=== PATIENT | female | born 1970 | race Caucasian/White ===

== ENCOUNTER → 2018-11-04 | Outpatient (CLI) | payer OTHER ==
--- NOTE | 2018-11-04 18:08 | KCIC ---
STUDY: MRI of the left knee without contrast INDICATION: Posterior left knee pain. COMPARISON: None. TECHNIQUE: Multiplanar MR imaging of the left knee performed without the use of intravenous or intra-articular contrast. FINDINGS: The study is degraded by susceptibility artifact associated with tibial surgical hardware and prior ACL repair. Menisci: Significantly diminutive caliber of the medial meniscal body which is extruded into the medial gutter. A superimposed acute tear defect is not identified. Macerated appearance of the lateral meniscus posterior horn as well as mid meniscal body which is extruded into the lateral gutter, image 15 series 7 and image 8 series 6. Cruciate ligaments: Status post ACL repair with the graft appearing intact but deviated medially due to a prominent osteophyte originating from the lateral wall of the intercondylar notch, reference images 12 and 13 series 8. Globular T2 signal elevation throughout the PCL with some visualized intact traversing fibers. Collateral ligaments: No findings to suggest acute injury of the medial or lateral collateral ligaments. These ligaments are bowed outward by joint line osteophytes and the extruded menisci and some edema along the lateral collateral ligamentous complex such as seen on image 16 series 4, is favored reactive. Tendons: The extensor tendon complex is grossly intact, as are the additional tendons at the knee. Cartilage: Patellofemoral: High-grade chondrosis centered at and extending along both sides of the patellar median ridge. Multifocal trochlear chondral loss as well that is difficult to evaluate due to artifact. Lateral compartment: Chondral loss most notable at the posterior weightbearing aspect of the lateral femoral condyle which is difficult to measure due to artifact. Chondral loss extends to involve the posterior nonweightbearing aspect. Medial compartment: Chondral thinning at the weightbearing aspect without well identified full-thickness defect. There appears to be some chondral loss at the posterior nonweightbearing aspect as well. Bones: Prominent joint line osteophytes. Patellofemoral compartment osteophyte formation. As above, prominent bony spur at the lateral aspect of the intercondylar notch. No acute fracture. Miscellaneous: Small knee joint effusion. Loose bodies seen within the posterior joint space, image 14 series 5. IMPRESSION: 1. Degraded evaluation due to susceptibility artifact associated with surgical hardware. 2. Sequela of prior ACL repair with the graft appearing intact. Note is made that the graft is bowed medially due to mass effect by a large osteophyte originating from the lateral wall of the intercondylar notch. Globular T2 signal elevation throughout the PCL could represent a large intracruciate ganglion or mucoid degeneration. 3. Diminutive caliber of the medial meniscal body with some extrusion into the medial gutter which could be related to prior partial meniscectomy or chronic degeneration. No acute medial meniscal tear is seen. Maceration of portions of the lateral meniscus such as at the mid meniscal body and at the posterior horn. 4. Tricompartmental osteoarthrosis with multifocal high-grade/full-thickness chondral loss, as detailed above. The greatest degree of chondral loss involves the patellofemoral and lateral femorotibial compartments. 5. Small knee joint effusion with loose bodies. Electronically signed by: BRITTNEY LARKIN MD (11/04/2018 6:05 PM) [facility]
== END | disposition home or self-care (01) ==
LOC: KCIC MRI 16:08
PROVIDERS: ATTEND Physical Medicine & Rehabilitation Pain Medicine
DX: M17.12 Unilateral primary osteoarthritis, left knee (principal); M25.762 Osteophyte, left knee; M23.42 Loose body in knee, left knee; M76.9 Unspecified enthesopathy, lower limb, excluding foot; F40.240 Claustrophobia; Z96.698 Presence of other orthopedic joint implants
CPT/HCPCS: 73721

== ENCOUNTER 2019-04-10 15:00 | Emergency (ER) | payer OTHER ==
[~2019-04-10] VITALS: Ht 161.3 cm; Wt 96.6 kg
--- NOTE | 2019-04-10 15:28 | PHYS DOC ---
Past Medical History NIHSS Stroke Scale NIH Stroke Scale: NIH Stroke Scale Response (Comments) Value Level of Consciousness: 0 Alert/Responsive 0 LOC Questions: 0 Answers both correctly 0 LOC Commands: 0 Performs both tasks 0 Best Gaze: 0 Normal 0 Visual: 0 No visual loss 0 Facial Palsy: 0 Normal, symmetrical 0 Motor - Left Arm 0 No drift 0 Motor - Right Arm 0 No drift 0 Motor - Left Leg 0 No drift 0 Motor: Right Leg 0 No drift 0 Limb Ataxia: 0 Absent 0 Sensory: 0 No loss 0 Best Language: 1 Mild to mod aphasia 1 Dysathria: 0 Normal 0 Extinction and Inattention: 0 Normal 0 Total 1 Adult General Chief Complaint Chief Complaint: SHORTNESS OF BREATH HPI HPI Patient is a 48 year old female who presents with on August patient had a left total knee done at [facility]. Surgery done by Dr. Neves. Patient states today she had gotten up and walked around into the bathroom and around into the house and began feeling shortness of air and lightheaded at 1400. She states that this time she had just gotten done eating some pizza and she sat down when she started feeling this way. She states that she is still feeling this way down the hospital. She stated that about 1430 she took 0.5 mg of Xanax to see if that would help. Patient last took 2 Percocet at 1035 this morning. She denies visual changes, chest pain, nausea, vomiting, headache, numbness or tingling, weakness, abdominal pain. She rates her knee pain a 5 out of 10 and states that's where 's staying. She states she is not on any kind of blood thinner. She states she has some tenderness to the left lateral lower leg and rosenberg area but states she does not think it is any worsening has been. Patient is ambulatory with a walker. (SYDNEY STEELE APRN) Review of Systems Review of Systems Respiratory: Denies cough. + shortness of breath [] Neurologic: Dizziness. Denies headache, focal weakness or sensory changes [] All other systems were reviewed and found to be within normal limits, except as documented in this note. (SYDNEY STEELE APRN) Current Medications Current Medications Current Medications Medications (Trade) Dose Ordered Sig/Westley Start Time Stop Time Status Last Admin Dose Admin Famotidine (Pepcid Vial) 20 mg 1X ONCE 04/10/19 17:45 04/10/19 17:47 DC 04/10/19 18:03 20 MG Fentanyl Citrate (Fentanyl 2ml Vial) 50 mcg 1X ONCE 04/10/19 17:45 04/10/19 17:46 DC 04/10/19 18:00 50 MCG Ibuprofen (Motrin) 600 mg 1X ONCE 04/10/19 19:00 04/10/19 19:01 DC 04/10/19 19:10 600 MG Info (CONTRAST GIVEN -- Rx MONITORING) 1 each PRN DAILY PRN 04/10/19 16:45 04/10/19 21:02 DC Iohexol (Omnipaque 350 Mg/ml) 100 ml 1X ONCE 04/10/19 16:30 04/10/19 16:31 DC 04/10/19 16:55 100 ML Morphine Sulfate (Morphine Sulfate) 2 mg 1X ONCE 04/10/19 19:15 04/10/19 19:16 DC 04/10/19 19:39 2 MG Sodium Chloride 1,000 ml @ 1,000 mls/hr 1X ONCE 04/10/19 16:30 04/10/19 17:29 DC 04/10/19 16:20 1,000 MLS/HR (HOLLIS ALVARADO MD) Allergies Allergies Allergies Coded Allergies Type Severity Reaction Last Updated Verified bupropion Allergy Unknown 04/10/19 Yes tegaserod Allergy Unknown 04/10/19 Yes (HOLLIS ALVARADO MD) Physical Exam Physical Exam Constitutional: Well developed, well nourished, no acute distress, non-toxic appearance. [] HENT: Normocephalic, atraumatic, bilateral external ears normal, oropharynx moist, no oral exudates, nose normal. [] Eyes: PERRLA, EOMI, conjunctiva normal, no discharge. [] Neck: Normal range of motion, no tenderness, supple, no stridor. [] Cardiovascular:Heart rate regular rhythm, no murmur [] Lungs & Thorax: Bilateral breath sounds clear to auscultation [] Abdomen: Bowel sounds normal, soft, no tenderness, no masses, no pulsatile masses. [] Skin: Warm, dry, no erythema, no rash. [] Back: No tenderness, no CVA tenderness. [] Extremities: No tenderness, no cyanosis, no clubbing, Left knee ROM intact but slightly less due to surgery, Left lower leg 2+ edema. [] Neurologic: Alert and oriented X 3, normal motor function, normal sensory function, no focal deficits noted. [] Psychologic: Affect normal, judgement normal, mood normal. [] (SYDNEY STEELE APRN) Current Patient Data Vital Signs Vital Signs Date Time Temp Pulse Resp B/P (MAP) Pulse Ox O2 Delivery O2 Flow Rate FiO2 04/10/19 20:38 86 20 127/83 (98) 97 Room Air 04/10/19 15:15 97.9 97.9 (HOLLIS ALVARADO MD) Lab Values Laboratory Tests Test 04/10/19 15:35 White Blood Count 7.6 x10^3/uL (4.0-11.0) Red Blood Count 4.13 x10^6/uL (3.50-5.40) Hemoglobin 12.3 g/dL (12.0-15.5) Hematocrit 36.2 % (36.0-47.0) Mean Corpuscular Volume 88 fL (79-100) Mean Corpuscular Hemoglobin 30 pg (25-35) Mean Corpuscular Hemoglobin Concent 34 g/dL (31-37) Red Cell Distribution Width 13.1 % (11.5-14.5) Platelet Count 204 x10^3/uL (140-400) Neutrophils (%) (Auto) 76 % (31-73) H Lymphocytes (%) (Auto) 15 % (24-48) L Monocytes (%) (Auto) 7 % (0-9) Eosinophils (%) (Auto) 2 % (0-3) Basophils (%) (Auto) 1 % (0-3) Neutrophils # (Auto) 5.8 x10^3/uL (1.8-7.7) Lymphocytes # (Auto) 1.1 x10^3/uL (1.0-4.8) Monocytes # (Auto) 0.5 x10^3/uL (0.0-1.1) Eosinophils # (Auto) 0.1 x10^3/uL (0.0-0.7) Basophils # (Auto) 0.1 x10^3/uL (0.0-0.2) D-Dimer (Ambar) 1.20 ug/mlFEU (0.00-0.50) H Sodium Level 138 mmol/L (136-145) Potassium Level 3.7 mmol/L (3.5-5.1) Chloride Level 100 mmol/L (98-107) Carbon Dioxide Level 28 mmol/L (21-32) Anion Gap 10 (6-14) Blood Urea Nitrogen 12 mg/dL (7-20) Creatinine 0.8 mg/dL (0.6-1.0) Estimated GFR (Cockcroft-Gault) 76.9 BUN/Creatinine Ratio 15 (6-20) Glucose Level 99 mg/dL (70-99) Calcium Level 9.1 mg/dL (8.5-10.1) Total Bilirubin 0.2 mg/dL (0.2-1.0) Aspartate Amino Transferase (AST) 47 U/L (15-37) H Alanine Aminotransferase (ALT) 48 U/L (14-59) Alkaline Phosphatase 63 U/L (46-116) Troponin I Quantitative < 0.017 ng/mL (0.000-0.055) JA-Tjw-C-Type Natriuretic Peptide 153 pg/mL (0-124) H Total Protein 6.8 g/dL (6.4-8.2) Albumin 3.3 g/dL (3.4-5.0) L Albumin/Globulin Ratio 0.9 (1.0-1.7) L Laboratory Tests 04/10/19 15:35 Laboratory Tests 04/10/19 15:35 (HOLLIS ALVARADO MD) Lab Values Laboratory Tests Test 04/10/19 15:35 White Blood Count 7.6 x10^3/uL (4.0-11.0) Red Blood Count 4.13 x10^6/uL (3.50-5.40) Hemoglobin 12.3 g/dL (12.0-15.5) Hematocrit 36.2 % (36.0-47.0) Mean Corpuscular Volume 88 fL (79-100) Mean Corpuscular Hemoglobin 30 pg (25-35) Mean Corpuscular Hemoglobin Concent 34 g/dL (31-37) Red Cell Distribution Width 13.1 % (11.5-14.5) Platelet Count 204 x10^3/uL (140-400) Neutrophils (%) (Auto) 76 % (31-73) H Lymphocytes (%) (Auto) 15 % (24-48) L Monocytes (%) (Auto) 7 % (0-9) Eosinophils (%) (Auto) 2 % (0-3) Basophils (%) (Auto) 1 % (0-3) Neutrophils # (Auto) 5.8 x10^3/uL (1.8-7.7) Lymphocytes # (Auto) 1.1 x10^3/uL (1.0-4.8) Monocytes # (Auto) 0.5 x10^3/uL (0.0-1.1) Eosinophils # (Auto) 0.1 x10^3/uL (0.0-0.7) Basophils # (Auto) 0.1 x10^3/uL (0.0-0.2) D-Dimer (Ambar) 1.20 ug/mlFEU (0.00-0.50) H Sodium Level 138 mmol/L (136-145) Potassium Level 3.7 mmol/L (3.5-5.1) Chloride Level 100 mmol/L (98-107) Carbon Dioxide Level 28 mmol/L (21-32) Anion Gap 10 (6-14) Blood Urea Nitrogen 12 mg/dL (7-20) Creatinine 0.8 mg/dL (0.6-1.0) Estimated GFR (Cockcroft-Gault) 76.9 BUN/Creatinine Ratio 15 (6-20) Glucose Level 99 mg/dL (70-99) Calcium Level 9.1 mg/dL (8.5-10.1) Total Bilirubin 0.2 mg/dL (0.2-1.0) Aspartate Amino Transferase (AST) 47 U/L (15-37) H Alanine Aminotransferase (ALT) 48 U/L (14-59) Alkaline Phosphatase 63 U/L (46-116) Troponin I Quantitative < 0.017 ng/mL (0.000-0.055) VE-Ymp-R-Type Natriuretic Peptide 153 pg/mL (0-124) H Total Protein 6.8 g/dL (6.4-8.2) Albumin 3.3 g/dL (3.4-5.0) L Albumin/Globulin Ratio 0.9 (1.0-1.7) L Laboratory Tests 04/10/19 15:35 Laboratory Tests 04/10/19 15:35 (SYDNEY STEELE APRN) EKG EKG NSR and no STEMI Interpretation Time: [address] Alvarado (SYDNEY STEELE APRN) Radiology/Procedures Radiology/Procedures [] (SYDNEY STEELE APRN) Impressions: [facility] [address] [place], [place] [id number] IMAGING REPORT Signed PATIENT: PHIL MOELLER ACCOUNT: [id number] : 1970 LOCATION: ER AGE: 48 SEX: F EXAM STATUS: REG ER ORD. PHYSICIAN: SYDNEY STEELE APRN REASON: elevated ddimer, post op left knee surgery 04/06, soa PROCEDURE: CT ANGIOGRAPHY CHEST Exam: CT of chest with contrast INDICATION: Elevated d-dimer, recent surgery TECHNIQUE: Sequential axial images through the chest obtained following the administration of 100 mL of Isovue 350 IV contrast. Sagittal and coronal reformatted images were reconstructed from the axial data and reviewed. 3-D reformatted images were reconstructed from the axial data and reviewed. Comparisons: None FINDINGS: Visualized portions of the thyroid are unremarkable. No enlarged mediastinal lymph nodes. Heart size is normal. No pericardial effusion. Thoracic aorta has a normal course and caliber. Pulmonary artery is not enlarged. Evaluation for pulmonary embolism is limited secondary to contrast bolus timing. No pulmonary embolus identified within the main, lobar or proximal segmental pulmonary arteries. Airways are patent. No consolidation or pneumothorax. No suspicious lung nodules are identified. Visualized upper abdomen. No suspicious osseous lesions or acute fractures. IMPRESSION: No pulmonary was identified within the main, lobar or proximal segmental pulmonary arteries. Limitations as described above. Exposure: One or more of the following in the visualized dose reduction techniques were utilized for this examination: 1. Automated exposure control 2. Adjustment of the MA and/or KV according to patient size 3. Use of iterative of reconstructive technique Electronically signed by: Vel Levi MD (04/10/2019 5:04 PM) [facility] [place] DICTATED and SIGNED BY: VEL LEVI MD DATE: 04/10/19 2147 [facility] [address] [facility] [place] [address] IMAGING REPORT Signed PATIENT: PHIL MOELLER ACCOUNT: [id number] : 1970 LOCATION: ER AGE: 48 SEX: F EXAM STATUS: PRE ER ORD. PHYSICIAN: SYDNEY STEELE APRN REASON: dizziness PROCEDURE: CT HEAD WO CONTRAST Exam: CT head INDICATION: Dizziness TECHNIQUE: Sequential axial images through the head were obtained without the administration of IV contrast. Comparisons: None FINDINGS: No focal parenchymal lesion or hemorrhage is identified. There is no midline shift or sulcal effacement. No acute vascular territory infarction is identified. Gipson-white distinction is preserved. The ventricular system is within normal limits without compression hydrocephalus. The basal cisterns are well maintained. The visualized portions of the paranasal sinuses and mastoid air cells are well-pneumatized. No acute fractures. IMPRESSION: No acute intracranial abnormality. Exposure: One or more of the following in the visualized dose reduction techniques were utilized for this examination: 1. Automated exposure control 2. Adjustment of the MA and/or KV according to patient size Use of iterative of reconstructive technique Electronically signed by: Vel Levi MD (04/10/2019 4:18 PM) [facility] DICTATED and SIGNED BY: VEL LEVI MD DATE: 04/10/19 1618 [facility] [address] [place] [address] IMAGING REPORT Signed PATIENT: PHIL MOELLER ACCOUNT: [id number] : 1970 LOCATION: ER AGE: 48 SEX: F EXAM STATUS: PRE ER ORD. PHYSICIAN: SYDNEY STEELE APRN REASON: post op total knee, tenderness PROCEDURE: VENOUS LOWER EXTREMITY LEFT VENOUS LOWER EXTREMITY LEFT History: Postop left total knee. Left lower extremity pain and tenderness. Comparison: None. Discussion: Multiple longitudinal and transverse high resolution real-time images of the venous system of left lower extremity were obtained with color and Doppler sampling. The common femoral, superficial femoral, popliteal and proximal calf veins are all patent and demonstrate normal flow and compressibility. Normal respiratory phasicity and augmentation is present. Impression: 1. No evidence of deep vein thrombosis within the left lower extremity. Electronically signed by: Devendra Steven DO (04/10/2019 4:18 PM) [facility] [place] DICTATED and SIGNED BY: DEVENDRA STEVEN DO DATE: 04/10/191617 [facility] [address] [place] [address] IMAGING REPORT Signed PATIENT: PHIL MOELLER ACCOUNT: [id number] : 1970 LOCATION: ER AGE: 48 SEX: F EXAM STATUS: PRE ER ORD. PHYSICIAN: SYDNEY STEELE APRN REASON: soa, post op total left knee 04/06 PROCEDURE: PORTABLE CHEST 1V PORTABLE CHEST 1V History: Shortness of breath. Comparison: March 29, 2019 Findings: No consolidation or pleural effusion. Normal heart size. No pneumothorax. Impression: 1. No acute cardiopulmonary process. Electronically signed by: Devendra Steven DO (04/10/2019 4:18 PM) [facility] [place] DICTATED and SIGNED BY: DEVENDRA STEVEN DO DATE: 04/10/191617 (SYDNEY STEELE APRN) Course & Med Decision Making Course & Med Decision Making No tenderness to the calf or lower leg with palpation. No tenderness behind the knee. Patient has her KEVIN hose on bilaterally. There is 2+ swelling to the left leg compared to the right leg. Pedal pulses strong and present. Cap refill less than 3 seconds. Skin pink warm and dry but skin around the surgical site and going up the thigh is red and hot, most likely cellulitis. Patient states this area is very tender. Lungs are clear to auscultation in all lobes. Patient states nothing makes her shortness of breath worse or better and nothing makes the dizziness worse or better. She states the room is not spinning she just feels lightheaded. PERRLA. No nystagmus. Follows all commands appropriately. NIH is 0. Upon arrival patient is tachycardic at 119 but is satting at 97% room air. Patient speaks in full clear sentences. Alert and oriented. Denies any chest pain or chest pain with breathing. Patient denies fevers or cough or any other flu symptoms. Patient is having orthostatic hypotension. Layin/70, 88; sittin/72, 86; standin/103, 106. Patient states her pain is now at a 6 on her knee and is asking for pain medication. I will give her fentanyl and normal saline 1000ml. D-dimer elevated at 1.20. CT Chest angio ordered. Chest x-ray, CT head, ultrasound of extremity, CT angio chest are all negative. Have spoken to Dr. Mccann Orthopedic doctor marketing communications coordinator at [facility]. He states to transfer the patient there to the ED. [facility] transfer line has been called and currently waiting on a phone call back. Patients temperature has elevated to 99.5. Patient is becoming very anxious. Patient is ordered ibuprofen. Patient is asking if we can hurry this up and patient's mother is asking if I can call the back to get things moving faster. I have spoken to Saira Burnett [employer] SCIENTIST at [facility] who is accepting the patient with a accepting physician of Dr Zuniga. She also states to hold off on the antibiotics as the orthopedic doctors will order those upon arrival. (SYDNEY STEELE APRN) Course & Med Decision Making I was not involving the care of this patient after 1800 on 04/10/2019 (HOLLIS ALVARADO MD) Dragon Disclaimer Dragon Disclaimer This electronic medical record was generated, in whole or in part, using a voice recognition dictation system. (SYDNEY STEELE APRN) Departure Departure Impression: Primary Impression: Cellulitis Additional Impressions: Shortness of breath Light headedness Disposition: 05 TRANSFER OTHER ([facility]) Condition: STABLE Referrals: NO PCP (PCP) Problem Qualifiers Primary Impression: Cellulitis Site of cellulitis: extremity Site of cellulitis of extremity: lower extremity Laterality: left Qualified Codes: L03.116 - Cellulitis of left lower limb SYDNEY STEELE APRN Apr 10, 2019 15:28 HOLLIS ALVARADO MD Apr 11, 2019 18:00
[2019-04-10 15:55] LABS: BASO # 0.1 x10^3/uL (0.0-0.2); BASO % 1 % (0-3); EOS # 0.1 x10^3/uL (0.0-0.7); EOS % 2 % (0-3); HEMATOCRIT 36.2 % (36.0-47.0); HEMOGLOBIN 12.3 g/dL (12.0-15.5); LYMPH # 1.1 x10^3/uL (1.0-4.8); LYMPH % 15 % (24-48); MEAN CORPUSCULAR HEMOGLOBIN 30 pg (25-35); MEAN CORPUSCULAR HGB CONC 34 g/dL (31-37); MEAN CORPUSCULAR VOLUME 88 fL (79-100); MONO # 0.5 x10^3/uL (0.0-1.1); MONO % 7 % (0-9); NEUT # 5.8 x10^3/uL (1.8-7.7); NEUT % 76 % (31-73); PLATELET COUNT 204 x10^3/uL (140-400); RED BLOOD COUNT 4.13 x10^6/uL (3.50-5.40); RED CELL DISTRIBUTION WIDTH 13.1 % (11.5-14.5); WHITE BLOOD COUNT 7.6 x10^3/uL (4.0-11.0)
[2019-04-10 16:09] LABS: CALCIUM 9.1 mg/dL (8.5-10.1); CREATININE 0.8 mg/dL (0.6-1.0); GFR 76.9; POTASSIUM 3.7 mmol/L (3.5-5.1)
[2019-04-10 16:14] LABS: ALBUMIN 3.3 g/dL (3.4-5.0); ALBUMIN/GLOBULIN RATIO 0.9 (1.0-1.7); TOTAL BILIRUBIN 0.2 mg/dL (0.2-1.0); TOTAL PROTEIN 6.8 g/dL (6.4-8.2)
--- NOTE | 2019-04-10 16:21 | RAD ---
PORTABLE CHEST 1V History: Shortness of breath. Comparison: March 29, 2019 Findings: No consolidation or pleural effusion. Normal heart size. No pneumothorax. Impression: 1. No acute cardiopulmonary process. Electronically signed by: Devendra Ibrahim DO (04/10/2019 4:18 PM) [facility]
--- NOTE | 2019-04-10 16:22 | RAD ---
VENOUS LOWER EXTREMITY LEFT History: Postop left total knee. Left lower extremity pain and tenderness. Comparison: None. Discussion: Multiple longitudinal and transverse high resolution real-time images of the venous system of left lower extremity were obtained with color and Doppler sampling. The common femoral, superficial femoral, popliteal and proximal calf veins are all patent and demonstrate normal flow and compressibility. Normal respiratory phasicity and augmentation is present. Impression: 1. No evidence of deep vein thrombosis within the left lower extremity. Electronically signed by: Devendra Ibrahim DO (04/10/2019 4:18 PM) [facility]
--- NOTE | 2019-04-10 16:22 | RAD ---
Exam: CT head INDICATION: Dizziness TECHNIQUE: Sequential axial images through the head were obtained without the administration of IV contrast. Comparisons: None FINDINGS: No focal parenchymal lesion or hemorrhage is identified. There is no midline shift or sulcal effacement. No acute vascular territory infarction is identified. Gipson-white distinction is preserved. The ventricular system is within normal limits without compression hydrocephalus. The basal cisterns are well maintained. The visualized portions of the paranasal sinuses and mastoid air cells are well-pneumatized. No acute fractures. IMPRESSION: No acute intracranial abnormality. Exposure: One or more of the following in the visualized dose reduction techniques were utilized for this examination: 1. Automated exposure control 2. Adjustment of the MA and/or KV according to patient size Use of iterative of reconstructive technique Electronically signed by: Vel Narayan MD (04/10/2019 4:18 PM) [facility]
[2019-04-10] MEDS ORDERED: fentaNYL PF VIAL 100 MCG/2 ML VIAL IVP ONE ×2 (16:30→17:45)
[2019-04-10] MEDS ORDERED: IOHEXOL 350 MG/ML 100 ML VIAL. IV ONE (16:30)
[2019-04-10] MEDS ORDERED: IV NORMAL SALINE 1000ML BAG 1,000 ML IV ONE (16:30)
[2019-04-10] MEDS ORDERED: CONTRAST GIVEN. MC PRN (16:45)
--- NOTE | 2019-04-10 17:07 | RAD ---
Exam: CT of chest with contrast INDICATION: Elevated d-dimer, recent surgery TECHNIQUE: Sequential axial images through the chest obtained following the administration of 100 mL of Isovue 350 IV contrast. Sagittal and coronal reformatted images were reconstructed from the axial data and reviewed. 3-D reformatted images were reconstructed from the axial data and reviewed. Comparisons: None FINDINGS: Visualized portions of the thyroid are unremarkable. No enlarged mediastinal lymph nodes. Heart size is normal. No pericardial effusion. Thoracic aorta has a normal course and caliber. Pulmonary artery is not enlarged. Evaluation for pulmonary embolism is limited secondary to contrast bolus timing. No pulmonary embolus identified within the main, lobar or proximal segmental pulmonary arteries. Airways are patent. No consolidation or pneumothorax. No suspicious lung nodules are identified. Visualized upper abdomen. No suspicious osseous lesions or acute fractures. IMPRESSION: No pulmonary was identified within the main, lobar or proximal segmental pulmonary arteries. Limitations as described above. Exposure: One or more of the following in the visualized dose reduction techniques were utilized for this examination: 1. Automated exposure control 2. Adjustment of the MA and/or KV according to patient size 3. Use of iterative of reconstructive technique Electronically signed by: Vel Narayan MD (04/10/2019 5:04 PM) [facility]
[2019-04-10] MEDS ORDERED: FAMOTIDINE 20 MG/2 ML VIAL IVP ONE (17:45)
[2019-04-10] MEDS ORDERED: IBUPROFEN 200 MG TABLET. PO ONE (19:00)
[2019-04-10] MEDS ORDERED: MORPHINE SULFATE 2 MG/ML VIAL. IV ONE (19:15)
[2019-04-10 20:38] VITALS: BP 127/83
--- NOTE | 2019-04-11 16:49 | EKG ---
[facility] [address] [place] [address] Test Date: 2019-04-10 Test Time: 15:23:04 Pat Name: PHIL MOELLER Department: Room: Gender: F Ep Tech: : 1970 Requested By: SYDNEY STEELE Order Number: [id number] Reading MD: Measurements Intervals [place] Rate: 86 P: 26 MA: 140 QRS: 6 QRSD: 78 T: 33 QT: 356 QTc: 429 Interpretive Statements SINUS RHYTHM NORMAL ECG RI6.01 No previous ECG available for comparison
== END 2019-04-10 20:49 | disposition short-term general hospital (02) ==
LOC: ER 15:00
DX: R06.02 Shortness of breath (principal); R42 Dizziness and giddiness; L03.116 Cellulitis of left lower limb; Z88.8 Allergy status to other drugs, medicaments and biological substances
CPT/HCPCS: 36415; 70450; 71045; 71275; 80053; 83880; 84484; 85025; 85379; 93005; 93971; 96361; 96374; 96375; 96376; 99285; J2270; J3010; J3490; J7030; Q9967